=== PATIENT | female | born 1955 | race Caucasian/White ===

== ENCOUNTER → 2023-09-24 12:35 | Outpatient (REF) | payer MEDICARE, SELFPAY | LOC: RAD 12:35 | PROVIDERS: ATTENDING PHYSICIAN Internal Medicine Endocrinology, Diabetes & Metabolism; FAMILY PHYSICIAN Family Medicine | DX: C73 Malignant neoplasm of thyroid gland (principal); E89.0 Postprocedural hypothyroidism | CPT/HCPCS: 76536 ==

== ENCOUNTER → 2025-03-11 13:18 | Outpatient (REF) | payer MEDICARE, SELFPAY | LOC: RAD 13:18 | PROVIDERS: ATTENDING PHYSICIAN Internal Medicine Endocrinology, Diabetes & Metabolism; FAMILY PHYSICIAN Family Medicine | DX: C73 Malignant neoplasm of thyroid gland (principal); E89.0 Postprocedural hypothyroidism; M81.0 Age-related osteoporosis without current pathological fracture | CPT/HCPCS: 76536 ==